=== PATIENT | female | born 1985 | race Caucasian/White ===

== ENCOUNTER 2021-07-24 09:51 | Emergency (ER) | payer OTHER ==
[~2021-07-24] VITALS: Ht 157.5 cm; Wt 72.6 kg
[~2021-07-24 09:51] MED LIST: FLAGYL500 MG PO; IBUPROFEN 800800 M1 PO; METROGEL-VAGINA70 GM VG; NOHOMEMEDICATIONS; ROBAXIN 750 MG750 M1 PO; TRAMADOL 50 MG50 MG PO; WELLBUTRIN SR100 MG
[2021-07-24] MEDS ORDERED: APAP W/CODEINE1 TA2 PO (11:42)
[2021-07-24] MEDS ORDERED: MEDROLDOSEPACK PO ×2 (11:42→12:08)
[2021-07-24] MEDS ORDERED: FLEXERIL PO (11:42)
[2021-07-24 11:49] VITALS: BP 122/80
== END 2021-07-24 11:51 | disposition home or self-care (01) ==
LOC: M.ERS 09:51
DX: M54.2 Cervicalgia (principal); Z79.899 Other long term (current) drug therapy